=== PATIENT | male | born 1965 | race Hispanic/Latino ===

== ENCOUNTER 2018-11-20 10:21 | Inpatient (IN) | payer SELFPAY ==
[2018-11-20] MEDS ORDERED: XYLOCAINE CARDIAC IV ONE (10:27)
[2018-11-20] MEDS ORDERED: ADRENALIN ONE (10:27)
[2018-11-20] MEDS ORDERED: ATROPINE 0.1% (CARDIAC) ONE (10:27)
[2018-11-20] MEDS ORDERED: HEPARIN/NS 5000 UNIT/500ML(CATH LAB) 1,000 ML IR ONE (10:28)
[2018-11-20] MEDS ORDERED: PHENYLEPHRINE/NS Syringe 1,000 MCG/10 ML IV ONE (10:28)
[2018-11-20] MEDS ORDERED: XYLOCAINE 2% INFILTRATI ONE (10:28)
[2018-11-20] MEDS ORDERED: HEPARIN 10,000 UNITS/10 ML ONE (10:28)
[2018-11-20] MEDS ORDERED: NITROGLYCERIN SYRINGE 3 ML ONE (10:29)
[2018-11-20] MEDS ORDERED: NACL 0.9% 1000 ML 1,000 ML IV ONE (10:32)
[2018-11-20] MEDS ORDERED: NACL 0.9% 1000 ML 1,000 ML ONE ×2 (10:40→16:54)
[2018-11-20] MEDS: VERSED ONE ×2 (10:44→10:48)
[2018-11-20] MEDS: SUBLIMAZE ONE ×2 (10:44→10:48)
[2018-11-20 10:47] LABS: Basophils # (Auto) 0.1 K/mm3 (0.0-0.1); Basophils % (Auto) 1.3 % (0.0-1.8); Eosinophils # (Auto) 0.1 K/mm3 (0.0-0.4); Eosinophils % (Auto) 1.5 % (0.0-4.3); Hematocrit 47.6 % (35.5-45.6); Hemoglobin 16.1 gm/dl (11.8-15.2); Lymphocytes # (Auto) 2.3 K/mm3 (1.2-5.4); Lymphocytes % (Auto) 25.2 % (13.4-35.0); Mean Corpuscular HGB Conc 34 % (32-34); Mean Corpuscular Volume 91 fl (84-94); Monocytes # (Auto) 0.8 K/mm3 (0.0-0.8); Monocytes % (Auto) 8.4 % (0.0-7.3); Platelet Count 265 K/mm3 (140-440); Red Blood Count 5.26 M/mm3 (3.65-5.03); Red Cell Distribution Width 13.8 % (13.2-15.2)
--- NOTE | 2018-11-20 10:50 | Emergency Department Report ---
ED General Adult HPI - General Stated complaint: CHEST PAIN Time Seen by Provider: 11/20/18 10:32 - History of Present Illness Initial comments: 53-year-old male said about 9:00 this morning he became very sweaty and somewhat short of breath. He denied chest pain pressure or tightness. EMS was summoned to his facility. They found to be diaphoretic and did a 12-lead EKG. The 12- lead EKG was consistent with inferior STEMI of somewhat indeterminate recency with reciprocal changes. A STEMI code was thus called. Dr. Beasley review the patient's EKG and stated to to view the patient and then send him to the laboratory sample carrier as per. Patient arrived was still a bit sweaty. He continued tonight chest pain pressure or tightness. He stated that father had a heart attack and bypass at 50. He's been told that he had slightly elevated cholesterol. He stated that he recently changed his lisinopril to losartan and his blood pressure has been poorly controlled. He also stated that a few days ago he did some heavy lifting and had some pain in his shoulders and neck again no chest pain. -: hour(s) Associated Symptoms: diaphoresis, shortness of breath - Related Data Allergies Allergy/AdvReac Type Severity Reaction Status Date / Time No Known Allergies Allergy Verified 11/20/18 10:40 ED Review of Systems ROS: Stated complaint: CHEST PAIN Other details as noted in HPI Constitutional: denies: chills, fever Eyes: denies: eye pain, eye discharge, vision change ENT: denies: ear pain, throat pain Respiratory: shortness of breath. denies: cough, wheezing Cardiovascular: denies: chest pain, palpitations Endocrine: no symptoms reported Gastrointestinal: denies: abdominal pain, nausea, diarrhea Genitourinary: denies: urgency, dysuria Musculoskeletal: denies: back pain, joint swelling, arthralgia Skin: denies: rash, lesions Neurological: denies: headache, weakness, paresthesias Psychiatric: denies: anxiety, depression Hematological/Lymphatic: denies: easy bleeding, easy bruising ED Past Medical Hx - Past Medical History Hx Hypertension: Yes - Social History Substance Use Type: Other (dips tobacco) ED Physical Exam - General General appearance: alert, in no apparent distress - Head Head exam: Present: atraumatic, normocephalic - Eye Eye exam: Present: normal appearance - ENT ENT exam: Present: mucous membranes moist - Neck Neck exam: Present: normal inspection - Respiratory Respiratory exam: Present: normal lung sounds bilaterally. Absent: respiratory distress - Cardiovascular Cardiovascular Exam: Present: regular rate, normal rhythm. Absent: systolic murmur, diastolic murmur, rubs, gallop - GI/Abdominal GI/Abdominal exam: Present: soft, normal bowel sounds. Absent: distended, tenderness, guarding, rebound, rigid - Rectal Rectal exam: Present: deferred - Extremities Exam Extremities exam: Present: normal inspection - Back Exam Back exam: Present: normal inspection - Neurological Exam Neurological exam: Present: alert, oriented X3, CN II-XII intact. Absent: motor sensory deficit - Psychiatric Psychiatric exam: Present: normal affect, normal mood - Skin Skin exam: Present: warm, dry, intact, normal color. Absent: rash ED Course - Reevaluation(s) Reevaluation #1: Repeat EKG was done on arrival in the emergency department. It did show an inferior STEMI. The Q waves are more prominent than the prehospital EKG. It was decided that the patient should proceed to the laboratory sample carrier as he had been already called. He was hemodynamically stable. 11/20/18 10:51 ED Medical Decision Making - EKG Data -: EKG Interpreted by Me EKG shows normal: sinus rhythm Rate: normal - EKG Data Interpretation: other (consistent with inferior stenting of uncertain recency) Critical care attestation.: If time is entered above; I have spent that time in minutes in the direct care of this critically ill patient, excluding procedure time. ED Disposition Clinical Impression: STEMI (ST elevation myocardial infarction) Qualifiers: Involved coronary artery: unspecified coronary artery Qualified Code(s): I21.3 - ST elevation (STEMI) myocardial infarction of unspecified site Disposition: DC-09 OP ADMIT IP TO THIS HOSP Is pt being admited?: Yes Does the pt Need Aspirin: Yes Condition: Stable Time of Disposition: 10:53
[2018-11-20] MEDS ORDERED: INTROPIN DRIP 800 MG/D5W 250 ML 800 MG/250 ML BAG IV ONE (10:54)
[2018-11-20] MEDS: INTROPIN DRIP 800 MG/D5W 250 ML 800 MG/250 ML BAG IV SCH (10:56)
[2018-11-20 10:58] LABS: INR 1.05 (0.87-1.13); Partial Thromboplastin Time 26.4 Sec. (24.2-36.6)
[2018-11-20] MEDS ORDERED: ASPIRIN PO SCH (11:00)
[2018-11-20] MEDS ORDERED: AGGRASTAT DRIP (12.5 MG/250 ML) 12,500 MCG/250 ML BAG IV ONE ×2 (11:02→18:25)
[2018-11-20 11:04] LABS: Creatine Kinase MB 18.8 ng/mL (0.0-4.0)
[2018-11-20 11:05] LABS: Alanine Aminotransferase 52 units/L (7-56); Albumin 4.5 g/dL (3.9-5)
[2018-11-20 11:06] LABS: BUN/Creatinine Ratio 18; Blood Urea Nitrogen 18 mg/dL (9-20); Calcium 9.7 mg/dL (8.4-10.2); Hemolysis Index 13
[2018-11-20] MEDS: AGGRASTAT DRIP (12.5 MG/250 ML) 12,500 MCG/250 ML BAG IV SCH ×2 (11:10→18:50)
[2018-11-20 11:12] LABS: Bilirubin,Direct < 0.2 mg/dL (0-0.2)
[2018-11-20] MEDS ORDERED: BABY ASPIRIN ONE (11:17)
[2018-11-20] MEDS ORDERED: BRILINTA ONE (11:18)
[2018-11-20 11:41] LABS: Chol/HDL Ratio 6.64 %; HDL Cholesterol 37 mg/dL (40-59); LDL Cholesterol,Direct 188 mg/dL (50-130)
--- NOTE | 2018-11-20 11:51 | Cardiac Catherization Report ---
CARDIAC CATHETERIZATION AND CORONARY ANGIOPLASTY REPORT REASON FOR PROCEDURE: The patient is a 53-year-old man with a history of hypertension, no previous cardiac history, presented with chest pain and ECG consistent with an acute inferior wall ST elevation myocardial infarction. He was referred for emergency cardiac catheterization. PROCEDURES: 1. Left heart catheterization. 2. Selective left and right coronary angiography. 3. Coronary angioplasty and stenting of the mid right coronary artery. 4. Sedation time, start 10:46, end 11:17. DESCRIPTION OF PROCEDURE: The patient was prepped and draped in a sterile fashion after informed consent. The right femoral artery was entered using Seldinger technique followed by placement of a 6-Kosovan sheath. Selective left and right coronary angiography was performed. A #4 left Ganga catheter was used for left coronary angiography. A #4 right Ganga guiding catheter was used for right coronary angiography. The angiograms were reviewed. CORONARY ANGIOGRAPHY: There was mild distal tapering of the left main coronary artery. Left anterior descending artery and its diagonal branches contained diffuse mild atherosclerosis. The circumflex artery was a large system, which contained a 50-60% ostial stenosis, followed by diffuse mild atherosclerosis of its proximal AV groove segment. After the mid obtuse marginal, there was a 40-50% stenosis of the distal circumflex leading to another large terminal obtuse marginal. The right coronary artery was dominant. This vessel contained an occlusive lesion in its mid segment. There was a long, 95-99% stenosis followed by a slow antegrade flow. This was the infarct related lesion. CORONARY ANGIOPLASTY: We proceeded with primary angioplasty of the mid right coronary artery. A 0.014 inch Elevator Inspector 50 guidewire was then introduced into the vessel, and directed across the lesional segment. Following optimal wire placement, the vessel was predilated using a 3.0 mm balloon catheter. We then deployed a 3.0 x 22 mm stent across the lesional segment inflating the stent to optimal pressures. Due to the length of the diseased segment, an additional 2.5 x 12 mm stent was deployed in juxtaposition to the distal border of the first stent and another 3.0 x 8 mm stent was placed in juxtaposition to the proximal border of the first stent. Following serial stenting as deployed, there was an excellent angiographic result through the mid segment and 0 residual stenosis. ADELA 3 flow was restored to the vessel, with a finding of diffuse mild to moderate disease of the distal branches, which recommended for medical therapy. The wires and the catheters were removed, sheath removed, and hemostasis achieved using an Angio-Seal device. The patient was returned to the postprocedure unit in stable condition. There were no complications. CONCLUSION: Successful angioplasty and stenting of the right coronary artery, a near total occlusion of the mid segment was treated successfully with excellent angiographic results using serial 2.75-3.0 and 3.5 mm stents. An echocardiogram will be ordered for left ventricular function and valvular function assessment. [facility]# [id number] KARTHIK/NTS
--- NOTE | 2018-11-20 11:52 | Event Note ---
Date: 11/20/18 53-year-old man with a history of hypertension, no prior cardiac history who presents with chest pain and ECG consistent with acute inferior wall ST elevation myocardial infarction. He was taken emergently to the cardiac catheterization laboratory, where we found near total occlusion of the right coronary artery midsegment. Successful primary angioplasty and stenting with yarsani of ADELA-3 flow and excellent angiographic result at the primary site. Please see dictated report for details. Admitted to the CCU for post-[place] supportive management, echocardiogram will be ordered for left ventricle function and valvular function assessment.
[2018-11-20] MEDS ORDERED: NACL 0.9% 1000 ML 1,000 ML IV SCH (13:00)
--- NOTE | 2018-11-20 13:45 | XRay Report ---
CHEST 1 VIEW INDICATION: Chest pain. COMPARISON: None FINDINGS: Support devices: None. Heart: Within normal limits. Lungs/Pleura: No acute air space or interstitial disease. Additional findings: None. IMPRESSION: No acute findings. Signer Name: Cristóbal Lynn Jr, MD Signed: 11/20/2018 1:41 PM Workstation Name: [id number]
--- NOTE | 2018-11-20 16:28 | History and Physical Report ---
History of Present Illness Date of examination: 11/20/18 Date of admission: 11/20/18 10:55 Chief complaint: Shortness of breath, diaphoresis,palpitation History of present illness: Patient is 53 yo presented with shortness of breath, diaphoresis, palpitation for few hours. He denied having chest pain. he was at work when this happened. Paramedics were called and EKG revealed STEMI. He was brought to ED, code STEMI called and he was taken emergently to laboratory machinist. Cardiac cath was done by Dr. Beasley revealed near total occlusion of RCA and he did PCI,serial stents placed to RCA. Post procedure, will admit to ICU. Patient is hypotensive started on Dopamine drip in addition to Aspirin, Aggrastat infusion. Past History Past Medical History: GERD, hypertension, other (Obesity, Umilical hernia, left inguinal hernia) Past Surgical History: appendectomy Social history: single, full code, other (Alcohol occasionally,dips tobacco) Family history: CAD, hypertension Medications and Allergies Allergies Allergy/AdvReac Type Severity Reaction Status Date / Time No Known Allergies Allergy Verified 11/20/18 10:40 Active Meds: Active Medications Aspirin (Halfprin Ec) 81 mg PO QDAY [facility] Atorvastatin Calcium (Lipitor) 40 mg PO QHS [facility] Sodium Chloride (Nacl 0.9% 1000 Ml) 1,000 mls @ 42 mls/hr IV ONCE ONE Stop: 11/21/18 10:20 Tirofiban/Sodium Chloride (Aggrastat Drip (12.5 Mg/250 Ml)) 12,500 mcg in 250 mls @ 22.5 mls/hr IV DIRECT [facility]; Protocol Stop: 11/21/18 05:59 Last Admin: 11/20/18 11:10 Dose: 22.5 mls/hr Documented by: Dopamine HCl/Dextrose (Intropin Drip 800 Mg/D5w 250 Ml) 800 mg in 250 mls @ 11.756 mls/hr IV TITR [facility]; Protocol Last Titration: 11/20/18 14:30 Dose: 7 mcg/kg/min, 16.459 mls/hr Documented by: Metoprolol Tartrate (Lopressor) 25 mg PO Q8H [facility] Ticagrelor (Brilinta) 90 mg PO BID [facility] Review of Systems All systems: negative (No headache, no abd pain, no urinary symptoms. All systems reviewed and are negative) Exam - Constitutional Vitals: Temp Pulse Resp BP Pulse Ox 98.6 F 79 11 L 111/58 96 11/20/18 11:46 11/20/18 15:30 11/20/18 15:30 11/20/18 15:30 11/20/18 15:30 General appearance: Present: no acute distress - EENT Eyes: Present: PERRL ENT: hearing intact - Neck Neck: Present: supple, normal ROM - Respiratory Respiratory effort: normal Respiratory: bilateral: CTA, negative: diminished, rales, rhonchi, wheezing - Cardiovascular Rhythm: regular Heart Sounds: Present: S1 & S2 (S1 and S2 reg) - Extremities Extremities: no ischemia, No edema, normal temperature, normal color - Abdominal General gastrointestinal: Present: soft, non-tender, non-distended, normal bowel sounds, hernia (umbilical hernia, left inguinal hernia) - Integumentary Integumentary: Present: clear, warm, dry - Musculoskeletal Musculoskeletal: strength equal bilaterally - Psychiatric Psychiatric: appropriate mood/affect, intact judgment & insight - Neurologic Neurologic: CNII-XII intact, moves all extremities, other (AAO x 3) Results - Labs CBC & Chem 7: 11/20/18 18:51 11/20/18 10:29 Labs: Abnormal lab results 11/20/18 11/20/18 11/20/18 Range/Units 10:29 10:29 10:29 RBC 5.26 H (3.65-5.03) M/mm3 Hgb 16.1 H (11.8-15.2) gm/dl Hct 47.6 H (35.5-45.6) % [place] % (Auto) 8.4 H (0.0-7.3) % Chloride 95.4 L (98-107) mmol/L Glucose 165 H (75-100) mg/dL AST 60 H (5-40) units/L Total Creatine Kinase 461 H (55-170) units/L CK-MB (CK-2) 18.8 H (0.0-4.0) ng/mL Troponin T 0.834 H* (0.00-0.029) ng/mL NT-Pro-B Natriuret Pep 954.2 H (0-900) pg/mL Triglycerides 292 H (2-149) mg/dL Cholesterol 246 H (50-199) mg/dL LDL Cholesterol Direct 188 H (50-130) mg/dL HDL Cholesterol 37 L (40-59) mg/dL Assessment and Plan STEMI s/p cardiac cath, PCI with serial stents to RCA midsegment Admit to ICU Aspirin, Metoprolol, Brilinta, Aggrastat drip Cardiology following Consult 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 I counseled him on diet and exercise Full code status
[2018-11-20] MEDS ORDERED: SODIUM CHLORIDE FLUSH SYRINGE 10 ML IV PRN (16:37)
[2018-11-20] MEDS ORDERED: ZOFRAN IV PRN (16:37)
[2018-11-20] MEDS ORDERED: MORPHINE IV PRN (16:37)
[2018-11-20] MEDS ORDERED: TYLENOL PO PRN (16:37)
[2018-11-20] MEDS ORDERED: PROTONIX IV SCH (17:00)
[2018-11-20 18:55] LABS: Hematocrit 46.4 % (35.5-45.6); Hemoglobin 15.1 gm/dl (11.8-15.2)
--- NOTE | 2018-11-20 20:11 | Event Note ---
Date: 11/20/18 53-year-old man with a history of hypertension, no prior cardiac history who presents with chest pain and ECG consistent with acute inferior wall ST elevation myocardial infarction; s/p Successful primary angioplasty and stenting admitted to the ICU for post-ME supportive management. Discussed with tutorial laboratory supervisor personnel. Full consult to follow
[2018-11-20 21:08] LABS: Creatine Kinase MB 10.5 ng/mL (0.0-4.0)
[2018-11-20 21:10] LABS: Creatine Kinase MB 11.2 ng/mL (0.0-4.0)
[2018-11-20] MEDS: BRILINTA PO SCH (22:51)
[2018-11-20] MEDS: SODIUM CHLORIDE FLUSH SYRINGE 10 ML IV SCH (22:52)
[2018-11-20] MEDS: LOPRESSOR PO SCH ×2 (23:05→23:30)
--- NOTE | 2018-11-21 03:22 | XRay Report ---
CHEST 1 VIEW INDICATION / CLINICAL INFORMATION: post pci. COMPARISON: 11/20/2018 FINDINGS: SUPPORT DEVICES: None. HEART / MEDIASTINUM: No significant abnormality. LUNGS / PLEURA: Development of homogeneous opacity in the left lower hemithorax. No pneumothorax. ADDITIONAL FINDINGS: No significant additional findings. IMPRESSION: 1. Left lower lung atelectasis versus developing pleural effusion Signer Name: Nitesh Irizarry MD Signed: 11/21/2018 3:18 AM Workstation Name: [id number]
[2018-11-21 05:24] LABS: Basophils # (Auto) 0.1 K/mm3 (0.0-0.1); Basophils % (Auto) 0.7 % (0.0-1.8); Eosinophils # (Auto) 0.1 K/mm3 (0.0-0.4); Eosinophils % (Auto) 1.4 % (0.0-4.3); Hematocrit 40.9 % (35.5-45.6); Hemoglobin 13.7 gm/dl (11.8-15.2); Lymphocytes # (Auto) 2.1 K/mm3 (1.2-5.4); Lymphocytes % (Auto) 24.6 % (13.4-35.0); Mean Corpuscular HGB Conc 34 % (32-34); Mean Corpuscular Volume 91 fl (84-94); Monocytes % (Auto) 11.1 % (0.0-7.3); Platelet Count 237 K/mm3 (140-440); Red Blood Count 4.48 M/mm3 (3.65-5.03)
[2018-11-21 05:44] LABS: Creatine Kinase MB 7.3 ng/mL (0.0-4.0)
[2018-11-21 05:45] LABS: BUN/Creatinine Ratio 18; Blood Urea Nitrogen 16 mg/dL (9-20); Calcium 8.4 mg/dL (8.4-10.2); Hemolysis Index 3
[2018-11-21] MEDS: LOPRESSOR PO SCH ×3 (06:44→22:15)
[2018-11-21] MEDS: INTROPIN DRIP 800 MG/D5W 250 ML 800 MG/250 ML BAG IV SCH (07:27)
--- NOTE | 2018-11-21 09:26 | Consultation ---
History of Present Illness Consult date: 11/21/18 Requesting physician: LUNA VACA Past History Past Medical History: GERD, hypertension, other (Obesity, Umilical hernia, left inguinal hernia) Past Surgical History: appendectomy Social history: single, full code, other (Alcohol occasionally,dips tobacco) Family history: CAD, hypertension Medications and Allergies Allergies Allergy/AdvReac Type Severity Reaction Status Date / Time No Known Allergies Allergy Verified 11/20/18 10:40 Active Meds: Active Medications Acetaminophen (Tylenol) 650 mg PO Q6H PRN PRN Reason: Pain MILD(1-3)/Fever >100.5/[place]AMS Aspirin (Halfprin Ec) 81 mg PO QDAY [facility] Atorvastatin Calcium (Lipitor) 40 mg PO QHS [facility] Last Admin: 11/20/18 22:51 Dose: 40 mg Documented by: Sodium Chloride (Nacl 0.9% 1000 Ml) 1,000 mls @ 42 mls/hr IV ONCE ONE Stop: 11/21/18 10:20 Last Admin: 11/20/18 17:34 Dose: 42 mls/hr Documented by: Dopamine HCl/Dextrose (Intropin Drip 800 Mg/D5w 250 Ml) 800 mg in 250 mls @ 11.756 mls/hr IV TITR [facility]; Protocol Last Titration: 11/21/18 09:19 Dose: 1 mcg/kg/min, 2.351 mls/hr Documented by: Metoprolol Tartrate (Lopressor) 25 mg PO Q8H [facility] Last Admin: 11/21/18 06:44 Dose: Not Given Documented by: Morphine Sulfate (Morphine) 2 mg IV Q4H PRN PRN Reason: Pain, Moderate (4-6) Ondansetron HCl (Zofran) 4 mg IV Q8H PRN PRN Reason: Nausea And Vomiting Pantoprazole Sodium (Protonix) 40 mg PO DAILY [facility] Sodium Chloride (Sodium Chloride Flush Syringe 10 Ml) 10 ml IV BID [facility] Last Admin: 11/20/18 22:52 Dose: 10 ml Documented by: Sodium Chloride (Sodium Chloride Flush Syringe 10 Ml) 10 ml IV PRN PRN PRN Reason: LINE FLUSH Ticagrelor (Brilinta) 90 mg PO BID [facility] Last Admin: 11/20/18 22:51 Dose: 90 mg Documented by: Physical Examination Vital signs: Vital Signs Temp Pulse Resp BP Pulse Ox 98.2 F 124 H 18 164/86 97 11/20/18 10:52 11/20/18 10:52 11/20/18 10:52 11/20/18 10:52 11/20/18 10:52 Results - Laboratory Findings CBC and BMP: 11/21/18 04:26 11/21/18 04:26 PT/INR, D-dimer PT 13.4 Sec. (12.2-14.9) 11/20/18 10:29 INR 1.05 (0.87-1.13) 11/20/18 10:29 Abnormal lab findings: Abnormal Labs 11/20/18 11/20/18 11/20/18 10:29 10:29 10:29 RBC 5.26 H Hgb 16.1 H Hct 47.6 H [place] % (Auto) 8.4 H [place] # Sodium Chloride 95.4 L Glucose 165 H AST 60 H Total Creatine Kinase 461 H CK-MB (CK-2) 18.8 H Troponin T 0.834 H* NT-Pro-B Natriuret Pep 954.2 H Triglycerides 292 H Cholesterol 246 H LDL Cholesterol Direct 188 H HDL Cholesterol 37 L 11/20/18 11/20/18 11/20/18 18:51 20:21 20:21 RBC Hgb Hct 46.4 H [place] % (Auto) [place] # Sodium Chloride Glucose AST Total Creatine Kinase 342 H 325 H CK-MB (CK-2) 11.2 H 10.5 H Troponin T 1.150 H* D 1.110 H* NT-Pro-B Natriuret Pep Triglycerides Cholesterol LDL Cholesterol Direct HDL Cholesterol 11/21/18 11/21/18 04:26 04:26 RBC Hgb Hct [place] % (Auto) 11.1 H [place] # 1.0 H Sodium 135 L Chloride 97.4 L Glucose 114 H AST Total Creatine Kinase 268 H CK-MB (CK-2) 7.3 H Troponin T 1.030 H* NT-Pro-B Natriuret Pep Triglycerides Cholesterol LDL Cholesterol Direct HDL Cholesterol
[2018-11-21] MEDS: BRILINTA PO SCH ×2 (10:13→22:14)
[2018-11-21] MEDS: HALFPRIN EC PO SCH (10:13)
[2018-11-21] MEDS: PROTONIX PO SCH (10:14)
[2018-11-21] MEDS: SODIUM CHLORIDE FLUSH SYRINGE 10 ML IV SCH ×2 (10:18→22:15)
--- NOTE | 2018-11-21 11:56 | Progress Note ---
Assessment and Plan Acute inferior wall ST elevation myocardial infarction s/p PCI of the mid RCA. On DAPT with Bilinta and aspirin History of hypertension Recommendations: Echocardiogram for left ventricle function assessment. Continue medical therapy for coronary artery disease. Ok for transfer to telemetry Subjective Date of service: 11/21/18 Interval history: Patient reports he feels better. He denies chest pain and shortness of breath. Objective Vital Signs Temp Pulse Pulse Resp BP Pulse Ox 11/21/18 11:16 73 17 127/81 97 11/21/18 11:00 76 11 L 127/81 11/21/18 10:46 75 14 117/72 98 11/21/18 10:30 76 15 117/72 97 11/21/18 10:16 84 12 117/72 98 11/21/18 10:00 82 15 116/64 99 11/21/18 09:48 83 11/21/18 09:46 79 15 116/64 98 11/21/18 09:30 83 14 116/64 97 11/21/18 09:16 84 17 116/64 96 11/21/18 09:00 80 15 109/68 95 11/21/18 08:46 81 16 109/68 98 11/21/18 08:30 86 18 109/68 97 11/21/18 08:16 83 11 L 109/68 98 11/21/18 08:02 94 11/21/18 08:00 97.4 F L 78 74 15 109/68 94 11/21/18 07:46 80 13 99/63 98 11/21/18 07:30 78 13 99/63 97 11/21/18 07:16 80 17 99/63 97 11/21/18 07:00 75 9 L 99/63 96 11/21/18 06:46 75 17 91/62 94 11/21/18 06:30 77 17 91/62 95 11/21/18 06:16 75 16 91/62 89 11/21/18 06:00 72 12 91/62 89 11/21/18 05:46 77 15 97/58 93 11/21/18 05:30 75 15 97/58 93 11/21/18 05:16 78 15 97/58 93 11/21/18 05:00 77 10 L 97/58 96 11/21/18 04:46 77 13 120/64 97 11/21/18 04:30 81 13 120/64 100 11/21/18 04:16 80 15 120/64 93 11/21/18 04:00 98.3 F 79 9 L 120/64 96 11/21/18 03:46 78 12 107/63 95 11/21/18 03:30 82 17 95 11/21/18 03:16 82 10 L 107/63 96 11/21/18 03:00 79 15 107/63 94 11/21/18 02:46 80 15 93/49 93 11/21/18 02:30 79 13 93/49 95 11/21/18 02:16 83 15 93/49 93 11/21/18 02:00 77 9 L 93/49 92 11/21/18 01:46 79 10 L 114/63 96 11/21/18 01:39 98 11/21/18 01:30 83 13 90/58 96 11/21/18 01:16 83 15 90/58 96 11/21/18 01:00 82 18 114/63 94 11/21/18 00:46 82 20 116/66 95 11/21/18 00:30 87 15 116/66 97 11/21/18 00:16 84 16 116/66 94 11/21/18 00:00 99 F 84 14 90/58 93 11/20/18 23:46 90 20 116/66 94 11/20/18 23:30 85 14 116/66 93 11/20/18 23:16 87 14 116/66 95 11/20/18 23:00 90 13 116/66 98 11/20/18 22:46 80 13 107/59 94 11/20/18 22:30 84 14 106/62 95 11/20/18 22:15 84 12 103/63 94 11/20/18 22:00 86 13 104/60 95 11/20/18 21:45 87 17 107/59 92 11/20/18 21:30 92 H 20 119/76 11/20/18 21:15 89 18 112/69 95 11/20/18 21:00 94 H 9 L 126/69 95 11/20/18 20:46 97 H 14 120/69 95 11/20/18 20:45 92 H 17 120/69 11/20/18 20:40 103 H 19 120/70 94 11/20/18 20:36 98 H 15 120/70 95 11/20/18 20:30 98.2 F 100 H 16 109/67 93 11/20/18 20:26 95 H 21 11/20/18 20:20 96 H 11 L 120/70 11/20/18 20:00 97.6 F 11/20/18 19:45 94 H 15 112/68 96 11/20/18 19:30 92 H 19 128/63 97 11/20/18 19:15 96 H 11 L 115/82 97 11/20/18 19:00 98 H 13 108/75 97 11/20/18 18:45 97 H 14 114/69 97 11/20/18 18:30 97 H 16 112/71 97 11/20/18 18:15 95 H 15 108/60 97 11/20/18 18:00 96 H 16 108/60 97 11/20/18 17:45 93 H 20 135/70 98 11/20/18 17:30 89 20 125/71 97 11/20/18 17:15 72 13 112/63 97 11/20/18 17:00 74 12 111/63 98 11/20/18 16:45 76 10 L 108/58 99 11/20/18 16:30 73 11 L 105/51 98 11/20/18 16:15 79 13 106/61 98 11/20/18 16:00 75 12 104/56 99 11/20/18 15:45 76 9 L 107/60 97 11/20/18 15:30 79 11 L 111/58 96 11/20/18 15:15 75 11 L 94/52 98 11/20/18 15:00 79 15 103/54 98 11/20/18 14:45 82 12 98/53 97 11/20/18 14:30 85 11 L 81/51 93 11/20/18 14:15 80 12 76/43 96 11/20/18 14:00 82 16 82/38 96 11/20/18 13:45 84 12 75/43 96 11/20/18 13:30 96 H 14 114/61 96 11/20/18 13:15 88 13 108/54 97 11/20/18 12:45 82 12 100/49 97 11/20/18 12:30 86 9 L 91/50 95 11/20/18 12:15 79 11 L 103/48 94 11/20/18 12:00 88 15 89/50 94 - Physical Examination General: No Apparent Distress HEENT: Positive: PERRL Neck: Positive: trachea midline Cardiac: Positive: Reg Rate and Rhythm Lungs: Positive: Normal Breath Sounds Neuro: Positive: Grossly Intact Incision: Cardiac Cath Site (right groin) Extremities: Absent: edema - Labs and Meds Cardiac Enzymes 11/20/18 11/20/18 11/21/18 Range/Units 20:21 20:21 04:26 CK-MB (CK-2) 11.2 H 10.5 H 7.3 H (0.0-4.0) ng/mL CBC 11/20/18 11/21/18 Range/Units 18:51 04:26 WBC 8.6 (4.5-11.0) K/mm3 RBC 4.48 (3.65-5.03) M/mm3 Hgb 15.1 13.7 (11.8-15.2) gm/dl Hct 46.4 H 40.9 (35.5-45.6) % Plt Count 232 237 (140-440) K/mm3 Lymph # 2.1 (1.2-5.4) K/mm3 [place] # 1.0 H (0.0-0.8) K/mm3 Eos # 0.1 (0.0-0.4) K/mm3 Baso # 0.1 (0.0-0.1) K/mm3 Comprehensive Metabolic Panel 11/21/18 Range/Units 04:26 Sodium 135 L (137-145) mmol/L Potassium 4.0 (3.6-5.0) mmol/L Chloride 97.4 L (98-107) mmol/L Carbon Dioxide 26 (22-30) mmol/L BUN 16 (9-20) mg/dL Creatinine 0.9 (0.8-1.5) mg/dL Glucose 114 H (75-100) mg/dL Calcium 8.4 (8.4-10.2) mg/dL
[2018-11-21] MEDS: ZESTRIL PO SCH (14:38)
--- NOTE | 2018-11-21 19:01 | Progress Note ---
Assessment and Plan Assessment and plan: Patient is 53 yo presented with shortness of breath, diaphoresis, palpitation for few hours. He denied having chest pain. he was at work when this happened. Paramedics were called and EKG revealed STEMI. He was brought to ED, code STEMI called and he was taken emergently to lab technologist. Cardiac cath was done by Dr. Beasley revealed near total occlusion of RCA and he did PCI,serial stents placed to RCA. Post procedure, will admit to ICU. Patient is hypotensive started on Dopamine drip in addition to Aspirin, Aggrastat infusion. STEMI s/p cardiac cath, PCI with serial stents to RCA midsegment Aspirin, Metoprolol, Brilinta, Aggrastat drip Cardiology following Intensivit input noted Transfer to Tele Hypotension Treated with dobutamin History of hypertension BP now low Obesity. I counseled him on diet and exercise Full code status History Interval history: Patient seen and examined, resting comfortable, doing well post Cardiac cath, no new chest pain, or arrhythmia reported Hospitalist Physical - Physical exam Narrative exam: VITAL SIGNS: Reviewed. GENERAL: The patient appears normally developed, Vital signs as documented. detail HEAD: No signs of head trauma. EYES: Pupils are equal. Extraocular motions intact. EARS: Hearing grossly intact. MOUTH: Oropharynx is normal. NECK: No adenopathy, no JVD. CHEST: Chest with clear breath sounds bilaterally. No wheezes, rales, or rhonchi. CARDIAC: Regular rate and rhythm. S1 and S2, without murmurs, gallops, or rubs. VASCULAR: No Edema. Peripheral pulses normal and equal in all extremities. ABDOMEN: Soft, non tender and non distended. No rebound or guarding, and no masses palpated. Bowel Sounds normal. MUSCULOSKELETAL: Good range of motion of all major joints. Extremities without clubbing, cyanosis or edema. NEUROLOGIC EXAM: Alert and oriented x 3 No focal sensory or strength deficits. Speech normal. Follows commands. PSYCHIATRIC: Mood normal. SKIN: detial exam as documented in skin assessment - Constitutional Vitals: Temp Pulse Resp BP Pulse Ox 97.4 F L 70 18 113/66 98 11/21/18 08:00 11/21/18 14:38 11/21/18 12:26 11/21/18 14:38 11/21/18 13:43 General appearance: Present: no acute distress Results - Labs CBC & Chem 7: 11/22/18 07:12 11/21/18 04:26 Labs: Laboratory Last Values WBC 8.6 K/mm3 (4.5-11.0) 11/21/18 04:26 RBC 4.48 M/mm3 (3.65-5.03) 11/21/18 04:26 Hgb 13.7 gm/dl (11.8-15.2) 11/21/18 04:26 Hct 40.9 % (35.5-45.6) 11/21/18 04:26 MCV 91 fl (84-94) 11/21/18 04:26 MCH 31 pg (28-32) 11/21/18 04:26 MCHC 34 % (32-34) 11/21/18 04:26 RDW 14.0 % (13.2-15.2) 11/21/18 04:26 Plt Count 237 K/mm3 (140-440) 11/21/18 04:26 Lymph % (Auto) 24.6 % (13.4-35.0) 11/21/18 04:26 [place] % (Auto) 11.1 % (0.0-7.3) H 11/21/18 04:26 Eos % (Auto) 1.4 % (0.0-4.3) 11/21/18 04:26 Baso % (Auto) 0.7 % (0.0-1.8) 11/21/18 04:26 Lymph # 2.1 K/mm3 (1.2-5.4) 11/21/18 04:26 [place] # 1.0 K/mm3 (0.0-0.8) H 11/21/18 04:26 Eos # 0.1 K/mm3 (0.0-0.4) 11/21/18 04:26 Baso # 0.1 K/mm3 (0.0-0.1) 11/21/18 04:26 Seg Neutrophils % 62.2 % (40.0-70.0) 11/21/18 04:26 Seg Neutrophils # 5.4 K/mm3 (1.8-7.7) 11/21/18 04:26 PT 13.4 Sec. (12.2-14.9) 11/20/18 10:29 INR 1.05 (0.87-1.13) 11/20/18 10:29 APTT 26.4 Sec. (24.2-36.6) 11/20/18 10:29 Sodium 135 mmol/L (137-145) L 11/21/18 04:26 Potassium 4.0 mmol/L (3.6-5.0) 11/21/18 04:26 Chloride 97.4 mmol/L (98-107) L 11/21/18 04:26 Carbon Dioxide 26 mmol/L (22-30) 11/21/18 04:26 Anion Gap 16 mmol/L 11/21/18 04:26 BUN 16 mg/dL (9-20) 11/21/18 04:26 Creatinine 0.9 mg/dL (0.8-1.5) 11/21/18 04:26 Estimated GFR > 60 ml/min 11/21/18 04:26 BUN/Creatinine Ratio 18 % 11/21/18 04:26 Glucose 114 mg/dL (75-100) H 11/21/18 04:26 POC Glucose 100 (70-105) 11/21/18 12:24 Calcium 8.4 mg/dL (8.4-10.2) 11/21/18 04:26 Total Bilirubin 0.70 mg/dL (0.1-1.2) 11/20/18 10:29 Direct Bilirubin < 0.2 mg/dL (0-0.2) 11/20/18 10:29 Indirect Bilirubin 0.5 mg/dL 11/20/18 10:29 AST 60 units/L (5-40) H 11/20/18 10:29 ALT 52 units/L (7-56) 11/20/18 10:29 Alkaline Phosphatase 61 units/L (35-129) 11/20/18 10:29 Total Creatine Kinase 268 units/L (55-170) H 11/21/18 04:26 CK-MB (CK-2) 7.3 ng/mL (0.0-4.0) H 11/21/18 04:26 CK-MB (CK-2) Rel Index 2.7 (0-4) 11/21/18 04:26 Troponin T 1.030 ng/mL (0.00-0.029) H* 11/21/18 04:26 NT-Pro-B Natriuret Pep 954.2 pg/mL (0-900) H 11/20/18 10:29 Total Protein 8.0 g/dL (6.3-8.2) 11/20/18 10:29 Albumin 4.5 g/dL (3.9-5) 11/20/18 10:29 Albumin/Globulin Ratio 1.3 % 11/20/18 10:29 Triglycerides 292 mg/dL (2-149) H 11/20/18 10:29 Cholesterol 246 mg/dL (50-199) H 11/20/18 10:29 LDL Cholesterol Direct 188 mg/dL (50-130) H 11/20/18 10:29 HDL Cholesterol 37 mg/dL (40-59) L 11/20/18 10:29 Cholesterol/HDL Ratio 6.64 % 11/20/18 10:29 Blood Type O POSITIVE 11/20/18 20:27 Antibody Screen Negative 11/20/18 20:27 Active Medications - Current Medications Current Medications: Generic Name Dose Route Start Last Admin Trade Name Freq PRN Reason Stop Dose Admin Acetaminophen 650 mg 11/20/18 16:37 Tylenol PO Q6H PRN Pain MILD(1-3)/Fever >100.5/ADAMS Aspirin 81 mg 11/21/18 10:00 11/21/18 10:13 Halfprin Ec PO 81 mg QDAY YUSUF Administration Atorvastatin Calcium 40 mg 11/20/18 22:00 11/20/18 22:51 Lipitor PO 40 mg QHS YUSUF Administration Lisinopril 5 mg 11/21/18 14:00 11/21/18 14:38 Zestril PO 5 mg QDAY YUSUF Administration Metoprolol Tartrate 50 mg 11/21/18 22:00 Lopressor PO BID YUSUF Morphine Sulfate 2 mg 11/20/18 16:37 Morphine IV Q4H PRN Pain, Moderate (4-6) Ondansetron HCl 4 mg 11/20/18 16:37 Zofran IV Q8H PRN Nausea And Vomiting Pantoprazole Sodium 40 mg 11/21/18 10:00 11/21/18 10:14 Protonix PO 40 mg DAILY YUSUF Administration Sodium Chloride 10 ml 11/20/18 22:00 11/21/18 10:18 Sodium Chloride Flush Syringe 10 Ml IV 10 ml BID YUSUF Administration Sodium Chloride 10 ml 11/20/18 16:37 Sodium Chloride Flush Syringe 10 Ml IV PRN PRN LINE FLUSH Ticagrelor 90 mg 11/20/18 22:00 11/21/18 10:13 Brilinta PO 90 mg BID YUSUF Administration
[2018-11-22 08:56] VITALS: BP 108/49
[2018-11-22] MEDS: BRILINTA PO SCH (09:12)
[2018-11-22] MEDS: HALFPRIN EC PO SCH (09:12)
[2018-11-22] MEDS: ZESTRIL PO SCH (09:12)
[2018-11-22] MEDS: LOPRESSOR PO SCH (09:13)
[2018-11-22] MEDS: PROTONIX PO SCH (09:13)
[2018-11-22] MEDS: SODIUM CHLORIDE FLUSH SYRINGE 10 ML IV SCH (09:13)
--- NOTE | 2018-11-22 11:51 | Discharge Summary ---
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 He denied having chest pain. he was at work when this happened. Paramedics were called and EKG revealed STEMI. He was brought to ED, code STEMI called and he was taken emergently to [facility]. Cardiac cath was done by Dr. Stoddard revealed near total occlusion of RCA and he did PCI,serial stents placed to RCA. Post procedure, will admit to ICU. Patient is hypotensive started on Dopamine drip in addition to Aspirin, Aggrastat infusion. * Discussed post stemi management with the patient, * counselling on medication and follow up provided with spouse at bedside * Per cardiology, brilinta changed to palvix due to cost and patients insurance status (Uninsured at this time) STEMI s/p cardiac cath, PCI with serial stents to RCA midsegment Hypotension Treated with dobutamin History of hypertension BP now low Obesity. I counseled him on diet and exercise Full code status Disposition: DC-01 TO HOME OR SELFCARE Core Measure Documentation - Palliative Care Palliative Care/ Comfort Measures: Not Applicable - Core Measures Any of the following diagnoses?: acute KS - Acute KS Discharge Requirements Aspirin at discharge: Yes RENNY/ARB for LVSD if EF <40%: Yes Beta mio at discharge: Yes Statin for LDL = or >100 mg/dl on DC: Yes Exam - Constitutional Vitals: Temp Pulse Resp BP Pulse Ox 98.3 F 73 18 108/49 96 11/22/18 07:19 11/22/18 09:13 11/22/18 08:09 11/22/18 09:13 11/22/18 10:00 Plan Activity: advance as tolerated, fall precautions Diet: low cholesterol Special Instructions: record daily BP diary Follow up with: PRIMARY CAREMD [Primary Care Provider] - 3-5 Days KELL STODDARD MD [Staff Physician] - 7 Days Prescriptions: AtorvaSTATin [Lipitor] 40 mg PO QHS #30 tablet Aspirin BABY CHEW TAB 81 mg PO DAILY #30 Metoprolol [Lopressor TAB] 50 mg PO BID #60 tablet Clopidogrel [Plavix] 75 mg PO QDAY #30 tablet Pantoprazole [Protonix TAB] 40 mg PO DAILY #30 tablet Lisinopril [Zestril TAB] 5 mg PO QDAY #30 tablet
--- NOTE | 2018-11-22 12:54 | Progress Note ---
<UDAY SNOW - Last Filed: 11/22/18 12:51> Assessment and Plan Acute inferior wall ST elevation myocardial infarction s/p PCI of the mid RCA. Brilinta changed to plavix due to no insurance History of hypertension Continue medical therapy for coronary artery disease. Stable cardiac chung for discharged. Patient advised to follow up with [facility] within 3-5 days. Subjective Date of service: 11/22/18 Interval history: Patient denies chest pain and shortness of breath. Objective Vital Signs Temp Pulse Pulse Resp BP Pulse Ox 11/22/18 10:00 96 11/22/18 09:13 73 108/49 11/22/18 09:12 73 108/49 11/22/18 08:09 18 11/22/18 07:19 98.3 F 73 18 108/49 98 11/22/18 04:00 98.8 F 73 16 92/50 94 11/21/18 23:42 98.8 F 76 18 99/49 97 11/21/18 22:15 82 70 20 109/56 98 11/21/18 20:22 77 11/21/18 20:20 98 11/21/18 19:49 98 11/21/18 19:27 98.5 F 82 16 109/56 97 11/21/18 16:50 104 H 30 H 141/88 100 11/21/18 16:40 107 H 32 H 100 11/21/18 16:34 104 H 20 84 11/21/18 16:20 98.6 F 70 18 99/45 97 11/21/18 14:40 113/66 11/21/18 14:38 70 113/66 11/21/18 13:43 98 11/21/18 13:29 82 122/81 - Physical Examination General: No Apparent Distress HEENT: Positive: PERRL Neck: Positive: trachea midline Cardiac: Positive: Reg Rate and Rhythm Lungs: Positive: Normal Breath Sounds Neuro: Positive: Grossly Intact Extremities: Absent: edema - Labs and Meds CBC 11/22/18 Range/Units 07:12 Hgb 14.0 (11.8-15.2) gm/dl Hct 42.0 (35.5-45.6) % Plt Count 223 (140-440) K/mm3 <LUNA MERA - Last Filed: 11/22/18 18:09> Assessment and Plan I have seen and evaluated the patient and agree with the assessment and plan. The patient has an acute inferior wall ST elevation myocardial infarction. Patient underwent [facility] s/p PCI of the mid RCA. Brilinta changed to plavix due to no insurance. Continue BB, ASA, and statin. PAtient is stable and ready for discharge. Patient to follow up within 1 week. Objective Vital Signs Temp Pulse Pulse Resp BP Pulse Ox 11/22/18 10:00 85 96 11/22/18 09:13 73 108/49 11/22/18 09:12 73 108/49 11/22/18 08:09 18 11/22/18 07:19 98.3 F 73 18 108/49 98 11/22/18 04:00 98.8 F 73 16 92/50 94 11/21/18 23:42 98.8 F 76 18 99/49 97 11/21/18 22:15 82 70 20 109/56 98 11/21/18 20:22 77 11/21/18 20:20 98 11/21/18 19:49 98 11/21/18 19:27 98.5 F 82 16 109/56 97 - Labs and Meds CBC 11/22/18 Range/Units 07:12 Hgb 14.0 (11.8-15.2) gm/dl Hct 42.0 (35.5-45.6) % Plt Count 223 (140-440) K/mm3
== END 2018-11-22 13:32 | disposition home or self-care (01) | DRG 247 ==
LOC: ED 10:21 → CATH 10:54 → CC1 10:55 → 4A 11-21 12:12
PROVIDERS: ADMIT Internal Medicine; ATTEND Internal Medicine
PROC: 027036Z Dilation of Coronary Artery, One Artery with Three Drug-eluting Intraluminal Devices, Percutaneous Approach (ICD-10-PCS; principal; 2018-11-20)
PROC: 4A023N7 Measurement of Cardiac Sampling and Pressure, Left Heart, Percutaneous Approach (ICD-10-PCS; 2018-11-20)
PROC: B2111ZZ Fluoroscopy of Multiple Coronary Arteries using Low Osmolar Contrast (ICD-10-PCS; 2018-11-20)
DX: I21.19 ST elevation (STEMI) myocardial infarction involving other coronary artery of inferior wall (principal); E66.9 Obesity, unspecified; I25.10 Atherosclerotic heart disease of native coronary artery without angina pectoris; I10 Essential (primary) hypertension; K21.9 Gastro-esophageal reflux disease without esophagitis; Z90.49 Acquired absence of other specified parts of digestive tract; Z82.49 Family history of ischemic heart disease and other diseases of the circulatory system; Z68.34 Body mass index [BMI] 34.0-34.9, adult; Z71.3 Dietary counseling and surveillance
CPT/HCPCS: 36415; 71045; 80048; 80061; 80076; 82550; 82553; 82962; 83880; 84484; 85014; 85018; 85025; 85049; 85347; 85610; 85730; 86850; 86900; 86901; 92941; 93005; 93010; 93306; 93458; 94760; 96365; 96366; 96368; 96374; G0378; A9270-GY; C1725; C1760; C1769; C1874; C1887; C1894; C9113; C9606; J0171; J0461; J1265; J1644; J2001; J2250; J2370; J3010; J3246; J7030; Q9967